=== PATIENT | female | born 1965 | race Caucasian/White ===

== ENCOUNTER → 2016-12-21 | Outpatient (CLI) | payer BC ==
[~2016-12-21] MED LIST: AMBIEN PO; ASPIRIN 325 MG PO; ASPIRIN ENTERI325 M1 DOB; COUMADIN PO; LASIX PO; LORTAB 101 TAB 10/5; LORTAB PO; LOVENOX SUBQ; STOOL SOFTENER1 EACH; SYNTHROID PO; TOPAMAX PO; ZOFRAN PO
--- NOTE | ~2016-12-21 | US136 ---
[facility] A Service of [facility] & [facility] RADIOLOGY TEXT RESULTS PATIENT: ROULA QUIROZ LOCATION: CNIV : 65 UNIT #: [id number] AGE: [address]: Catia Monterroso MD SEX: F ORDER DR: [id number] [facility] [address] [place], [place] [address] [id number] O MR#: [id number] Acc #: [id number] NAME: ROULA QUIROZ : 1965 SEX: F STUDY DATE/TIME: 12/21/2016 9:17 UNIT: CNIV ROOM: STUDY DESCRIPTION: U/L Ext Art Study [facility] Bil Attending Physician: Catia Monterroso M.D. Referring Physician: Catia Monterroso M.D. Ordering Physician: Catia Monterroso M.D. Primary Care Physician: Ines Caballero M.D. MEDICAL IMAGING REPORT This report is preliminary unless electronic signature is present EXAM Ankle brachial indices HISTORY Peripheral vascular disease FINDINGS Doppler velocity waveforms are triphasic at the posterior tibial arteries bilaterally and monophasic at the dorsalis pedis bilaterally. Pulse volume recordings are normal at the ankles bilaterally. Right brachial pressure is not done and left brachial pressure is 133. On the right side posterior tibial pressure is 157 dorsalis pedis 139 and great toe is 50 for a right ankle brachial index of 1.18. On the left side posterior tibial pressure is 145 dorsalis pedis 144 great toe is 40 for a left ankle brachial index of 1.09. IMPRESSION Normal perfusion is seen up to the ankles bilaterally with TIARA of 1.18 on the right and 1.09 on the left. Toe pressures are decreased bilaterally indicating small vessel disease in the feet. Dictated by... Luis A Barahona M.D. THIS IS AN ELECTRONICALLY VERIFIED REPORT Luis A Barahona M.D. at 12/27/2016 9:19 AM /bal TD: 12/21/2016 14:43 JOB #: [id number] [facility] A Service of [facility] RADIOLOGY TEXT RESULTS PATIENT: ROU[facility]IR[id number] : [birth year] UNIT #: [id number] AGE: [address]: Catia Monterroso MD SEX: F ORDER DR: MEDICAL IMAGING REPORT Page 1 of 1 COPY
--- NOTE | ~2016-12-21 | US83 ---
[facility] A Service of [facility] & [facility] RADIOLOGY TEXT RESULTS PATIENT: ROULA QUIROZ LOCATION: CNIV : [birth year] UNIT #: [id number] AGE: [address]: Catia Monterroso MD SEX: F ORDER DR: [id number] [facility] [address] [place], [place] [address] [id number] O MR#: [id number] Acc #: [id number] NAME: ROULA QUIROZ : 1965 SEX: F STUDY DATE/TIME: 12/21/2016 9:27 UNIT: CNIV ROOM: STUDY DESCRIPTION: US LE [employer] Attending Physician: Catia Monterroso M.D. Referring Physician: Catia Monterroso M.D. Ordering Physician: Catia Monterroso M.D. Primary Care Physician: Ines Caballero M.D. MEDICAL IMAGING REPORT This report is preliminary unless electronic signature is present EXAM Left lower extremity arterial duplex with graft surveillance. HISTORY Peripheral vascular disease. FINDINGS Duplex imaging in the left lower extremity was performed. The common femoral artery is patent with a velocity of 197 cm/sec. The proximal superficial femoral artery is patent with a velocity of 142 cm/sec and triphasic waveforms. Mid SFA velocity is 112 cm/sec. There is a bypass graft arising from the distal SFA which is widely patent. Proximal anastomosis is 49 cm/sec above the knee. The bypass graft velocity is 69 cm/sec with triphasic waveforms at the knee it is 72 cm/sec, below the knee it is 91 cm/sec. The distal anastomosis velocity is 61 mm/sec. They are not significant in the posterior velocity at 47 cm/sec. IMPRESSION The left lower extremity bypass graft is widely patent. No anastomotic narrowing's are seen. No increased velocities are seen. Mixed graft velocity at the knee is 73 cm/sec. Dictated by... Luis A Barahona M.D. THIS IS AN ELECTRONICALLY VERIFIED REPORT Luis A Barahona M.D. at 12/27/2016 9:19 AM /tamika TD: 12/21/2016 14:34 [facility] A Service of [facility] & [facility] RADIOLOGY TEXT RESULTS PATIENT: ROULA QUIROZ LOCATION: [facility] #: [id number] : [birth year] UNIT #: [id number] AGE: [address]: Catia Monterroso MD SEX: F ORDER DR: JOB #: [id number] MEDICAL IMAGING REPORT Page 1 of 1 COPY
== END | disposition home or self-care (01) ==
LOC: CNIV 12-14 11:00
DX: I73.9 Peripheral vascular disease, unspecified (principal)
CPT/HCPCS: 93922; 93926